=== PATIENT | male | born 1960 | race Caucasian/White ===

== ENCOUNTER → 2017-07-19 | Outpatient (CLI) | payer OTHER ==
--- NOTE | 2017-07-19 10:56 | DIAGNOSTIC IMAGING REPORT ---
LUMBAR SPINE W/O CONTRAST CLINICAL HISTORY: 56 years-old Male presenting with LOW BACK PAIN, left leg weakness status post fall 6 weeks ago. TECHNIQUE: Multisequence, multiplanar MR imaging of the lumbar spine was performed without the use of intravenous contrast. IV contrast: None. COMPARISON: None. FINDINGS: Localizer images: Unremarkable. Straightening of normal lumbar lordosis secondary to multilevel degenerative changes. Anterior endplate edema and sclerotic change evident at L2-3. Less extensive endplate edema evident eccentrically at L5-S1. Remaining vertebral bodies demonstrate normal bone marrow signal intensity. A limbus vertebral body noted at L4. Remaining vertebral bodies demonstrate normal height and alignment. Multilevel disc height loss with disc bulges and disc desiccation evident though this largely spares the L1-2 level. Multilevel degenerative changes further detailed below: L1-2: No significant spinal canal or neural foraminal narrowing. L2-3: Anterior osteophytosis and disc bulge evident. The disc bulge results in minimal effacement of the thecal sac and more significant, moderate effacement of the bilateral neural foramina, right greater than left. Mass effect on the exiting right L2 nerve root and abutment of the exiting left L2 nerve root noted. L3-4: Disc bulge results in mild effacement of the ventral thecal sac. Moderate right and mild left neural foraminal narrowing also noted. As seen at the prior level, mass effect on the exiting right L3 nerve root and abutment of the exiting left 3-D nerve root is noted. L4-5: Disc bulge and ligamentum flavum thickening mildly effaces the thecal sac circumferentially. In combination with mild facet arthropathy, severe bilateral neural foraminal narrowing evident with mass effect on the bilateral exiting L4 nerve roots. L5-S1: Disc bulge and facet arthropathy result in no significant spinal canal narrowing though severe right and moderate to severe left neural foraminal narrowing is evident. Mass effect on the exiting L5 nerve roots noted. Spinal cord ends in good position at the superior endplate of L1. Cauda equina normal in morphology. Paraspinal musculature normal. No paraspinal edema. No epidural collection. IMPRESSION: 1. Significant multilevel degenerative changes with disc bulges primarily resulting in varying levels of neural foraminal narrowing from L2-3 through L5-S1. Mass effect on multiple exiting nerve roots as detailed above. No significant spinal canal narrowing. Electronically signed by: Brandon Tian M.D. 07/19/2017 10:54 AM Dictated Date/Time: 07/19/2017 10:46 AM
== END | disposition home or self-care (01) ==
LOC: C.MRI 09:54
PROVIDERS: ATTEND Family Medicine
DX: M54.5 Low back pain (principal)